=== PATIENT | male | born 1970 | race Asian ===

== ENCOUNTER 2019-04-07 12:10 | Inpatient (IN) | payer OTHER, BC ==
[~2019-04-07] VITALS: Ht 170.2 cm; Wt 83.2 kg
[~2019-04-07 12:10] MED LIST: ADCIRCA20 MG PO; BACTRIM DS1 TAB PO; BACTROBAN2%; FUROSEMIDE20 MG PO; HIB480 TP; LACTINEX PO; LEVAQUIN750 MG PO; NOR10T PO; OPSUMIT10 MG PO; PANTOPRAZOLE SO40 M1 PO; PAXIL10 MG PO; TREPROSTINIL
[2019-04-07 12:20] VITALS: Ht 170.2 cm; Wt 83.2 kg
[2019-04-07 13:18] LABS: PLATELET COUNT 194 x10^3mcL (130-400); RED CELL DISTRIBUTION WIDTH 13.1 % (11.5-14.5)
[2019-04-07 13:37] LABS: CALCIUM 8.8 mg/dL (8.5-10.1); CARBON DIOXIDE 21.2 mmol/L (21-32); CHLORIDE SERUM 106 mmol/L (98-107); CREATININE SERUM 1.1 mg/dL (0.7-1.3); GFR1 > 60 mL/min; GLUCOSE SERUM 128 mg/dL (74-106); POTASSIUM SERUM 3.3 mmol/L (3.5-5.1); SODIUM SERUM 139 mmol/L (136-145)
[2019-04-07 13:40] LABS: BAND NEUTROPHIL 4 % (0-10); BASOPHIL 0 % (0-2); MONOCYTE 5 % (0-7); SEGMENTED NEUTROPHILS 82 % (37-75)
[2019-04-07 13:42] LABS: ALBUMIN 3.4 g/dL (3.4-5.0); ALKALINE PHOSPHATASE 81 U/L (46-116); ALT/SGPT 21 U/L (16-63); AST/SGOT 10 U/L (15-37); PLATELET MORPHOLOGY PLATELETS DECREASED; rbc morphology (normal/abnorm) ABNORMAL (NORMAL)
[2019-04-07 14:06] LABS: UA SPECIFIC GRAVITY 1.025 (1.005-1.035); microscopic required? YES; urine erythrocyte 2+ (NEGATIVE)
[2019-04-07] MEDS ORDERED: VIAGRA50 MG PO (14:18)
[2019-04-07] MEDS ORDERED: NAP500 PO (14:19)
[2019-04-07] MEDS ORDERED: BREO ELLIPTA1 POW IH (14:19)
[2019-04-07 14:58] VITALS: BP 101/64
[2019-04-07 17:03] VITALS: BP 115/58
[2019-04-07 17:37] VITALS: BP 115/58
[2019-04-07 20:39] VITALS: BP 97/58
[2019-04-08 06:13] VITALS: BP 96/62
[2019-04-08 10:00] LABS: BASOPHIL % 0.3 % (0-2); PLATELET COUNT 167 x10^3mcL (130-400); RED CELL DISTRIBUTION WIDTH 13.6 % (11.5-14.5)
[2019-04-08 10:05] LABS: CALCIUM 8.9 mg/dL (8.5-10.1); CARBON DIOXIDE 21.6 mmol/L (21-32); CHLORIDE SERUM 106 mmol/L (98-107); CREATININE SERUM 0.8 mg/dL (0.7-1.3); GFR1 > 60 mL/min; GLUCOSE SERUM 240 mg/dL (74-106); POTASSIUM SERUM 3.5 mmol/L (3.5-5.1); SODIUM SERUM 139 mmol/L (136-145)
[2019-04-08 10:08] VITALS: BP 100/69
[2019-04-08 13:33] VITALS: BP 114/78
[2019-04-08] MEDS ORDERED: VANCOMYCIN1 GM/1001 IV (14:00)
[2019-04-08 14:13] VITALS: BP 114/78
[2019-04-08 17:29] VITALS: BP 104/65
[2019-04-08 21:10] VITALS: BP 110/68
[2019-04-09 06:02] VITALS: BP 99/68
[2019-04-09 06:39] LABS: PLATELET COUNT 191 x10^3mcL (130-400); RED CELL DISTRIBUTION WIDTH 13.6 % (11.5-14.5)
[2019-04-09 06:41] LABS: CALCIUM 9.4 mg/dL (8.5-10.1); CARBON DIOXIDE 20.9 mmol/L (21-32); CHLORIDE SERUM 109 mmol/L (98-107); CREATININE SERUM 0.8 mg/dL (0.7-1.3); GFR1 > 60 mL/min; GLUCOSE SERUM 155 mg/dL (74-106); POTASSIUM SERUM 3.5 mmol/L (3.5-5.1); SODIUM SERUM 141 mmol/L (136-145)
[2019-04-09 09:50] VITALS: BP 101/63
[2019-04-09 11:13] LABS: BAND NEUTROPHIL 5 % (0-10); BASOPHIL 0 % (0-2); MONOCYTE 3 % (0-7); SEGMENTED NEUTROPHILS 88 % (37-75)
[2019-04-09 11:14] LABS: PLATELET MORPHOLOGY PLATELETS DECREASED; rbc morphology (normal/abnorm) ABNORMAL (NORMAL)
[2019-04-09 13:16] VITALS: BP 112/73
[2019-04-09 17:48] VITALS: BP 95/55
[2019-04-09 20:42] VITALS: BP 99/54
[2019-04-10 05:03] VITALS: BP 94/51
[2019-04-10 08:27] VITALS: BP 94/51
[2019-04-10 09:41] VITALS: BP 111/64
[2019-04-10 13:56] VITALS: BP 116/75
[2019-04-10 18:10] VITALS: BP 101/59
[2019-04-10 21:34] VITALS: BP 106/61
[2019-04-11 05:34] VITALS: BP 108/63
[2019-04-11 06:13] LABS: BASOPHIL % 0.2 % (0-2); PLATELET COUNT 220 x10^3mcL (130-400); RED CELL DISTRIBUTION WIDTH 13.7 % (11.5-14.5)
[2019-04-11 06:26] LABS: CALCIUM 8.7 mg/dL (8.5-10.1); CARBON DIOXIDE 20.5 mmol/L (21-32); CHLORIDE SERUM 109 mmol/L (98-107); CREATININE SERUM 0.8 mg/dL (0.7-1.3); GFR1 > 60 mL/min; GLUCOSE SERUM 109 mg/dL (74-106); POTASSIUM SERUM 3.6 mmol/L (3.5-5.1); SODIUM SERUM 143 mmol/L (136-145)
[2019-04-11 09:21] VITALS: BP 100/61
[2019-04-11 12:29] VITALS: BP 117/71
[2019-04-11 16:48] VITALS: BP 104/58
[2019-04-11 21:01] VITALS: BP 114/68
[2019-04-12 05:35] VITALS: BP 97/58
[2019-04-12 09:22] VITALS: BP 113/72
[2019-04-12 13:26] VITALS: BP 132/80
[2019-04-12 16:35] VITALS: BP 119/76
[2019-04-12 19:45] VITALS: BP 108/69
[2019-04-13 05:54] VITALS: BP 99/66
[2019-04-13 08:51] VITALS: BP 129/88
[2019-04-13 10:03] VITALS: BP 129/88
[2019-04-13 14:32] VITALS: BP 114/77
[2019-04-13 16:05] VITALS: BP 107/63
[2019-04-13 19:10] VITALS: BP 97/58
[2019-04-14 06:09] VITALS: BP 123/79
[2019-04-14 09:46] VITALS: BP 113/73
[2019-04-14 11:22] LABS: BASOPHIL % 0.4 % (0-2); PLATELET COUNT 182 x10^3mcL (130-400); RED CELL DISTRIBUTION WIDTH 13.4 % (11.5-14.5)
[2019-04-14 11:46] LABS: CALCIUM 8.4 mg/dL (8.5-10.1); CARBON DIOXIDE 25.5 mmol/L (21-32); CHLORIDE SERUM 109 mmol/L (98-107); CREATININE SERUM 0.8 mg/dL (0.7-1.3); GFR1 > 60 mL/min; GLUCOSE SERUM 119 mg/dL (74-106); POTASSIUM SERUM 3.6 mmol/L (3.5-5.1); SODIUM SERUM 142 mmol/L (136-145)
[2019-04-14 12:40] VITALS: BP 110/80
[2019-04-14 16:35] VITALS: BP 114/75
[2019-04-14 20:44] VITALS: BP 122/80
[2019-04-15 05:46] VITALS: BP 110/77
[2019-04-15 07:19] LABS: CALCIUM 8.3 mg/dL (8.5-10.1); CARBON DIOXIDE 25.4 mmol/L (21-32); CHLORIDE SERUM 107 mmol/L (98-107); CREATININE SERUM 0.8 mg/dL (0.7-1.3); GFR1 > 60 mL/min; GLUCOSE SERUM 93 mg/dL (74-106); POTASSIUM SERUM 3.3 mmol/L (3.5-5.1); SODIUM SERUM 140 mmol/L (136-145)
[2019-04-15 07:50] LABS: BASOPHIL % 0.3 % (0-2); PLATELET COUNT 176 x10^3mcL (130-400); RED CELL DISTRIBUTION WIDTH 13.6 % (11.5-14.5)
[2019-04-15 08:30] VITALS: BP 140/88
[2019-04-15 10:30] VITALS: BP 116/68
[2019-04-15 12:26] VITALS: BP 108/72
[2019-04-15 17:54] VITALS: BP 115/83
[2019-04-15 19:29] VITALS: BP 115/83
== END 2019-04-15 20:57 | disposition short-term general hospital (02) | DRG 314 ==
LOC: ED 12:10 → DU 14:17
PROVIDERS: Emergency Medicine; Internal Medicine; ADMIT General Practice
DX: T80.211A Bloodstream infection due to central venous catheter, initial encounter (principal); A41.01 Sepsis due to Methicillin susceptible Staphylococcus aureus; J15.9 Unspecified bacterial pneumonia; J96.01 Acute respiratory failure with hypoxia; R65.10 Systemic inflammatory response syndrome (SIRS) of non-infectious origin without acute organ dysfunction; T82.7XXA Infection and inflammatory reaction due to other cardiac and vascular devices, implants and grafts, initial encounter; E86.0 Dehydration; I27.20 Pulmonary hypertension, unspecified; M45.9 Ankylosing spondylitis of unspecified sites in spine; Z68.27 Body mass index [BMI] 27.0-27.9, adult
CPT/HCPCS: 36600; 83880; 87804; 94150; J0456; J0696; J1956; J2920; J3370; J3490; J7030; J7040; J7050; J7512; J7644; Q0092